=== PATIENT | male | born 1975 | race Hispanic/Latino ===

== ENCOUNTER 2024-10-15 17:50 | Emergency (ER) | payer BC ==
[~2024-10-15] VITALS: Ht 172.7 cm; Wt 95.3 kg
--- NOTE | 2024-10-15 18:30 | NUR ---
PATIENT BEDDED RM 16 AT THIS TIME
[2024-10-15 18:41] LABS: BASOPHILS # (AUTO) 0.05 K/uL (0.00-0.20); BASOPHILS % (AUTO) 0.4 % (0.0-5.0); EOSINOPHILS # (AUTO) 0.01 K/uL (0.00-0.70); EOSINOPHILS % (AUTO) 0.1 % (0.0-8.0); HEMATOCRIT 47.9 % (42-54); IMMATURE GRANULOCYTE ABSOLUTE 0.03 K/uL (0-1); LYMPHOCYTES % (AUTO) 16.2 % (21.0-51.0); MEAN CORPUSCULAR HEMOGLOBIN 29.3 pg (27.0-33.0); MEAN CORPUSCULAR HGB CONC 33.6 g/dL (32.0-36.0); MEAN CORPUSCULAR VOLUME 87.1 fL (79-99); MONOCYTES # (AUTO) 0.9 K/uL (0.1-1.0); MONOCYTES % (AUTO) 6.7 % (3.0-13.0); NEUTROPHILS # (AUTO) 9.6 K/uL (1.8-7.7); NEUTROPHILS % (AUTO) 76.4 % (40.0-77.0); PLATELET COUNT (AUTO) 310 K/uL (130-400); RED CELL DISTRIBUTION WIDTH 12.5 % (11.0-15.5); WHITE BLOOD COUNT (AUTO) 12.6 K/uL (4.8-10.8)
[2024-10-15 18:50] LABS: CREATININE 0.9 mg/dL (0.5-1.3); POTASSIUM 3.8 mmol/L (3.5-5.1)
[2024-10-15 18:55] LABS: MAGNESIUM 2.4 mg/dL (1.80-2.40)
--- NOTE | 2024-10-15 19:02 | ERN ---
General Chief Complaint: Palpitations Stated Complaint: SOB Time Seen by MD: 18:00 Time Seen by Midlevel: 18:00 Source: patient History of Present Illness Initial Comments The patient is a 49-year-old male presenting to the emergency department for evaluation of palpitations and mild shortness of breath. The patient states that this morning he did cocaine and consumed alcohol. Prior to arrival he developed palpitations so he decided to report to the ER for further evaluation. Patient has no other complaints. Allergies: Coded Allergies: No Known Drug Allergies (Unverified Allergy, Unknown, 10/15/24) Past Medical History Past Medical History: Hypertension Past Surgical History: Other Surgical History Other: LEFT CLAVICLE SURGERY ROS Dictation CONSTITUTIONAL: Negative except for HPI HEAD/FACE: Negative except for HPI EENT: Negative except for HPI RESPIRATORY: Negative except for HPI GASTROINTESTINAL/ABDOMINAL: Negative except for HPI GENITOURINARY: Negative except for HPI MUSCULOSKELETAL: Negative except for HPI INTEGUMENTARY: Negative except for HPI NEUROLOGICAL/PSYCH: Negative except for HPI HEMATOLOGIC/LYMPHATIC: Negative except for HPI All Systems Negative, Except as noted above. 13 point review of systems assessed and all negative except for above. Physical Exam Physical Exam Dictation Vital Signs reviewed General Appearance: Alert, oriented x 3, no acute distress, well developed, nourished. Head and Face: non-traumatic. Eyes: PERRL, pink conjunctivas, eyelid no trauma, anterior chamber with arcus senilis. Ears: Pinnas intact and no signs of trauma or erythema ear canals clear and no discharge TM no erythema Nose: No discharge, no bleeding. Oropharynx: Mouth normal, tongue pink, pharynx clear,no erythema, tonsils no exudates, no abscesses noted, mucous membrane moist Neck: Supple, non-tender, no thyromegaly, no masses, no JVD, no bruits Breast:Deferred Chest:No tenderness, no crepitus, no paradoxical movement, no retractions Lungs:Clear, well-ventilated, symmetric, no rales, no wheezing, no rhonchi, no stridor, good breath sounds bilaterally Heart: Regular rate, regular rhythm, no murmur, no gallops Vascular: no peripheral edema, Abdomen: Soft, positive bowel sounds, nondistended, no guarding, nontender, no rebound, no masses no hepatomegaly, no splenomegaly, no Madrid's sign, no hernias. Rectal: Deferred Genital: Deferred Neurological: Normal speech, motor function intact, sensory function intact Musculoskeletal: Neck nontender, full range of motion, back nontender, full range of motion, Extremities: nontender, full range of motion Skin: Color pink, dry, no turgor, no rash, no lacerations, no abrasions, no contusions. Lymphatic: Deferred Results Laboratory and Microbiology Lab and Micro Result Laboratory Tests Test 10/15/24 18:17 10/15/24 20:26 White Blood Count 12.6 K/uL (4.8-10.8) H Red Blood Count 5.50 MIL/uL (4.50-6.20) Hemoglobin 16.1 g/dL (14.0-18.0) Hematocrit 47.9 % (42-54) Mean Corpuscular Volume 87.1 fL (79-99) Mean Corpuscular Hemoglobin 29.3 pg (27.0-33.0) Mean Corpuscular Hemoglobin Concent 33.6 g/dL (32.0-36.0) Red Cell Distribution Width 12.5 % (11.0-15.5) Platelet Count 310 K/uL (130-400) Mean Platelet Volume 9.7 fL (7.5-10.5) Immature Granulocyte % (Auto) 0.2 % (0-1) Neutrophils (%) (Auto) 76.4 % (40.0-77.0) Lymphocytes (%) (Auto) 16.2 % (21.0-51.0) L Monocytes (%) (Auto) 6.7 % (3.0-13.0) Eosinophils (%) (Auto) 0.1 % (0.0-8.0) Basophils (%) (Auto) 0.4 % (0.0-5.0) Neutrophils # (Auto) 9.6 K/uL (1.8-7.7) H Lymphocytes # (Auto) 2.0 K/uL (1.0-4.8) Monocytes # (Auto) 0.9 K/uL (0.1-1.0) Eosinophils # (Auto) 0.01 K/uL (0.00-0.70) Basophils # (Auto) 0.05 K/uL (0.00-0.20) Absolute Immature Granulocyte (auto 0.03 K/uL (0-1) Nucleated Red Blood Cells 0.0 % (0.0-0.19) Sodium Level 132 mmol/L (136-145) L Potassium Level 3.8 mmol/L (3.5-5.1) Chloride Level 92 mmol/L (101-111) L Carbon Dioxide Level 34 mmol/L (21-32) H Blood Urea Nitrogen 8 mg/dL (7-18) Creatinine 0.9 mg/dL (0.5-1.3) Glomerular Filtration Rate Calc 105 mL/min (>90) Random Glucose 165 mg/dL (70-105) H Total Calcium 10.2 mg/dL (8.5-10.1) H Magnesium Level 2.40 mg/dL (1.80-2.40) Total Creatine Kinase 106 U/L (21-232) Troponin I High Sensitivity 7 ng/L (4-75) 10 ng/L (4-75) REASON: palpitations ORDERING PHYSICIAN: DAVIS PARRA PROCEDURE: CXR1VW - CHEST 1VW CHEST 1VW HISTORY: Palpitations COMPARISON: None FINDINGS: A frontal projection of the chest was obtained. No acute pulmonary infiltrates is seen. The heart is normal in size. Prominent interstitial markings are seen. Postop changes are seen of left clavicle. No evidence of aortic calcification is seen. IMPRESSION: 1. No acute pulmonary infiltrate is seen. Labs Reviewed?: Yes EKG/XRAY/US/CT/MRI EKG Comment Date:10/15/2024 Time:1759 Ventricular rate:105 DE interval:143 QRS duration:90 QT/QTc:344 EKG interpretation: Sinus rhythm Reviewed by ED Attending no STEMI MDM The patient is a 49-year-old male with a history of hypertension who presents to the emergency department with complaints of palpitations and shortness of breath prior to arrival. Patient reports he did go pain this morning. Patient reports this is the 1st time ever doing cocaine. Denies any chest pain. CBC showed mild leukocytosis, no anemia, chemistry showed mild hypochloremia, mild hyponatremia, negative troponins x2. Chest x-ray showed no acute pathology. Patient reports symptoms improved. Tachycardia improved to 80s. Patient with no chest pain. In no acute distress spoke to patient about labs and imaging results. Instructed not to consume anymore drugs. Patient agrees and agrees to be discharged and follow up with primary doctor. Differential diagnosis: ACS, tachyarrhythmia, anxiety, dehydration Need for hospitalization: Patient does not meet criteria for hospitalization. There are no social concerns with this patient. ED Course Orders Procedure Category Date Status Time 12 Lead Ekg Tracing- EKG 10/15/24 Logged Technical 17:58 Cbc With Differential LAB 10/15/24 Complete 17:58 Basic Metabolic Panel LAB 10/15/24 Complete 17:58 Creatine Kinase, Total LAB 10/15/24 Complete 17:58 Magnesium LAB 10/15/24 Complete 17:58 Troponin I High LAB 10/15/24 Complete Sensitivity 17:58 Chest 1vw RAD 10/15/24 Resulted 17:58 0.9%Nacl 1000ml (Ns PHA 10/15/24 Complete 1000ml) 19:30 Troponin I High LAB 10/15/24 Complete Sensitivity 19:06 Current Medications Medications (Trade) Dose Ordered Sig/Eliza Route PRN Reason Start Time Stop Time Status Last Admin Dose Admin Sodium Chloride 1,000 ml @ 0 mls/hr ONCE ONCE IV 10/15/24 19:30 10/15/24 19:31 DC 10/15/24 19:47 Vital Signs Date Time Temp Pulse Resp B/P (MAP) Pulse Ox O2 Delivery O2 Flow Rate FiO2 10/15/24 19:40 98.1 87 19 148/87 98 Room Air* 0 21 10/15/24 18:40 98.2 97 16 145/92 98 Room Air* 0 21 10/15/24 17:54 98.1 107 18 184/111 99 Room Air HEART Score Response (Comments) Value History: Low suspicion (0) 0 EKG: Normal 0 Age: 45-65yrs (+1) 1 Risk Factors: 1-2 risk factors (+1) 1 Initial Troponin: Normal limit (0) 0 HEART Score Risk: Low Risk for MACE (1-3) Total 2 DX & DISP Disposition: Discharge Departure Impression: Primary Impression: Palpitations Additional Impression: Cocaine abuse Condition: Stable Additional Instructions: Please follow up with your primary doctor in 1-2 days. Please avoid any drugs. If symptoms worsen please return to ER. FOLLOW-UP WITH PRIMARY CARE PROVIDER IN 1 TO 2 DAYS. TAKE MEDICATIONS DIRECTED HERE IN THE EMERGENCY ROOM. OKAY TO CONTINUE HOME MEDICATIONS UNLESS OTHERWISE DISCUSSED DURING YOUR VISIT IN THE EMERGENCY ROOM TODAY. RETURN TO YOUR NEAREST EMERGENCY ROOM IF SYMPTOMS WORSEN OR IF THERE IS NO IMPROVEMENT. CALL 911 IF YOU NEED IMMEDIATE ASSISTANCE. TAKE TYLENOL OR MOTRIN [id number] NEEDED AND IF NO CONTRAINDICATIONS ARE PRESENT. INCREASE ORAL HYDRATION. A WOUND CULTURE OR URINE CULTURE WAS ORDERED HERE IN THE EMERGENCY ROOM DEPARTMENT PLEASE FOLLOW-UP WITH PRIMARY CARE PROVIDER AND ADVISE THEM TO GET REPEAT PORTS FROM OUR FACILITY. IF YOU HAD ANY JEREMIAS WRAP/SPLINTS THAT WERE APPLIED HERE, PLEASE DO NOT REMOVE THEM UNTIL YOU SEE YOUR PRIMARY CARE OR SPECIALTY. Referrals: SALO CAMPOS MD (PCP) Time of Disposition: 21:26 I have reviewed the case, and I agree with, Diagnosis and Plan DAVIS PARRA Oct 15, 2024 19:02 MIKIE HERNANDEZ Oct 15, 2024 21:28
--- NOTE | 2024-10-15 19:12 | HMCIMG ---
CHEST 1VW HISTORY: Palpitations COMPARISON: None FINDINGS: A frontal projection of the chest was obtained. No acute pulmonary infiltrates is seen. The heart is normal in size. Prominent interstitial markings are seen. Postop changes are seen of left clavicle. No evidence of aortic calcification is seen. IMPRESSION: 1. No acute pulmonary infiltrate is seen.
--- NOTE | 2024-10-15 19:17 | NUR ---
PT CARE ASSUMED AT THIS TIME
[2024-10-15] MEDS: 0.9%NACL 1000ML 1,000 ML IV ONE (19:47)
[2024-10-15 22:14] VITALS: BP 118/75; PULSE 75; RESP 16; TEMP 98.1; O2SAT 98
--- NOTE | 2024-10-16 15:29 | EKG ---
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
== END 2024-10-15 22:27 | disposition home or self-care (01) ==
LOC: EDH 17:50
DX: R00.2 Palpitations (principal); F14.10 Cocaine abuse, uncomplicated; I10 Essential (primary) hypertension
CPT/HCPCS: 36415; 71045; 80048; 82550; 83735; 84484; 85025; 93005; 99284